=== PATIENT | male | born 2000 | race Caucasian/White ===

== ENCOUNTER 2023-12-06 22:52 | Emergency (ER) | payer OTHER ==
[2023-12-06 23:09] VITALS: BP 106/55; PULSE 85; RESP 20; TEMP 98.1; BMI 22.1
[2023-12-07] MEDS ORDERED: ACETAMINOPHEN INJECTION 100 ML IVPB ONE (00:34)
[2023-12-07 00:38] LABS: HEMATOCRIT 44.6 % (35.4-49); HEMOGLOBIN 15.7 GM/dL (11.7-16.9); MCH 32.2 pg (25.7-33.7); MCHC 35.1 g/dl (32.0-35.9); MEAN CELL VOLUME 91.7 fl (80-96); MEAN PLT VOLUME 7.7 fl (7.5-11.1); PLATELET COUNT 235 10^3/uL (134-434); RBC 4.86 M/mm3 (4.00-5.60); RDW 13.2 % (11.9-15.9); WHITE BLOOD COUNT 14.1 K/mm3 (4.0-10.0)
[2023-12-07] MEDS: LACTATED RINGERS SOLUTION 1000 ML INFUS.BAG IV ONE (00:40)
[2023-12-07] MEDS: ACETAMINOPHEN 1000 MG/100 ML BAG IVPB ONE (00:40)
[2023-12-07 01:01] LABS: MAGNESIUM 1.6 mg/dL (1.8-2.4)
[2023-12-07] MEDS ORDERED: MAGNESIUM SULFATE IN WATER 2 GM/50 ML IVPB IVPB ONE (01:44)
[2023-12-07] MEDS: MAGNESIUM SULF 50% (8.12 MEQ/2 ML-1 GM VIAL) IVPB ONE (01:45)
[2023-12-07 01:50] LABS: CALCIUM 9.3 mg/dL (8.5-10.1)
[2023-12-07 01:51] LABS: BLOOD UREA NITROGEN 13.9 mg/dL (7-18)
[2023-12-07 01:54] LABS: CREATININE 0.9 mg/dL (0.55-1.3)
[2023-12-07 02:44] LABS: EPI CELLS 6 /uL (0-25.1); HYALINE CASTS 0 /uL (0-3.1); PH,URINE >= 9.0 (5.0-8.0); URINE APPEARANCE CLEAR; URINE BACTERIA 7 /uL (0-1359); URINE BILIRUBIN NEGATIVE (NEGATIVE); URINE COLOR YELLOW; URINE GLUCOSE (UA) NEGATIVE (NEGATIVE); URINE KETONE 2+ (NEGATIVE); URINE LEUK ESTERASE NEGATIVE (NEGATIVE); URINE NITRITE NEGATIVE (NEGATIVE); URINE PROTEIN TRACE (NEGATIVE); URINE RBC 375 /uL (0-23.9); URINE WBC 7 /uL (0-25.8)
== END 2023-12-07 02:29 | disposition home or self-care (01) ==
LOC: JER 22:52
PROC: 3E033NZ Introduction of Analgesics, Hypnotics, Sedatives into Peripheral Vein, Percutaneous Approach (ICD-10-PCS; principal; 2023-12-07)
PROC: 3E033GC Introduction of Other Therapeutic Substance into Peripheral Vein, Percutaneous Approach (ICD-10-PCS; 2023-12-07)
DX: K52.9 Noninfective gastroenteritis and colitis, unspecified (principal); E83.42 Hypomagnesemia; R10.13 Epigastric pain; M79.18 Myalgia, other site; R11.10 Vomiting, unspecified
CPT/HCPCS: 36415; 80048; 81003; 83690; 83735; 85025; 86850; 86900; 86901; 87086; 87491; 87591; 87661; 99284-25; J0131